=== PATIENT | female | born 2005 | race Caucasian/White ===

== ENCOUNTER 2025-06-21 20:28 | Emergency (ER) | payer MEDICAID ==
--- NOTE | 2025-06-21 20:34 | ERPHSYRPT ---
- History of Present Illness Time Seen by Provider: 06/21/25 20:31 Source: patient, family Exam Limitations: no limitations Physician History: This is a 19-year-old white female patient who arrives per private vehicle accompanied by her mother who has had a couple of months complaint of intermittent pelvic pain. They could be on the right, it could be on the left, it can be on both sides. She currently has not had any vaginal discharge. Within the last year she stated that she thinks she had a miscarriage. Within the last couple months she thought she had a yeast infection and therefore she treated herself with [id number] vaginal tablets. Her last menstrual period is 05/13/2025. She states over the last several months her menstrual periods have been varying in terms of timing. She appears to be in no discomfort at this time. Timing/Duration: intermittent, other (Chronic ) Activites at Onset: none Quality: cramping (Intermittent) Onset Location: pelvic pain Severity of Pain-Max: mild Severity of Pain-Current: none Sexual intercourse history: non-contributory Modifying Factors: Improves With: nothing Associated Symptoms: abdominal pain (Mild intermittent pelvic cramping), No nausea, No vomiting, No dysuria, No polyuria, No urinary frequency, No loss of bladder control, No lower back pain, No vaginal discharge Allergies/Adverse Reactions: No Known Drug Allergies Allergy (Verified 06/21/25 20:40) Home Medications: No Reportable Medications [No Reported Medications] 06/21/25 [History] Travel Risk - International Travel Have you traveled outside of the country in past 3 weeks: No - Emerging Infectious Disease Are you exhibiting symptoms associated with any current EIDs: No - Review of Systems Constitutional: No Symptoms Eyes: No Symptoms Ears, Nose, & Throat: No Symptoms Respiratory: No Symptoms Cardiac: No Symptoms Abdominal/Gastrointestinal: Abdominal Pain (Intermittent pelvic cramping) Genitourinary Symptoms: No Symptoms, No Dysuria, No Vaginal Bleeding, No Vaginal Discharge, No Vaginal Itching Musculoskeletal: No Symptoms Skin: No Symptoms Neurological: No Symptoms Psychological: No Symptoms Endocrine: No Symptoms Hematologic/Lymphatic: No Symptoms Immunological/Allergic: No Symptoms All Other Systems: Reviewed and Negative - Past Medical History Pertinent Past Medical History: No - Nursing Vital Signs Nursing Vital Signs: Initial Vital Signs Temperature 98.3 F 06/21/25 20:41 Pulse Rate 90 06/21/25 20:41 Respiratory Rate 18 06/21/25 20:41 Blood Pressure 146/89 06/21/25 20:41 O2 Sat by Pulse Oximetry 98 06/21/25 20:41 Pain Scale Pain Intensity 1 - Physical Exam General Appearance: no apparent distress, alert, anxiety, thin Eye Exam: PERRL/EOMI, eyes nml inspection Ears, Nose, Throat Exam: normal ENT inspection, moist mucous membranes Neck Exam: normal inspection, non-tender, supple, full range of motion Respiratory Exam: airway intact, No chest tenderness, No respiratory distress Gastrointestinal/Abdomen Exam: soft, normal bowel sounds, tenderness (Mild to palpation), guarding (Mild to palpation suprapubic region), No rebound Pelvic Exam: not done Rectal Exam: not done Back Exam: normal inspection, normal range of motion, No CVA tenderness, No vertebral tenderness Extremity Exam: normal inspection, normal range of motion, pelvis stable Neurologic Exam: alert, oriented x 3, cooperative, solution analyst II-XII nml as tested, nml cerebellar function, nml station & gait, sensation nml Skin Exam: normal color, warm, dry Lymphatic Exam: No adenopathy SpO2 Interpretation: normal O2 Delivery: Room Air - Course Nursing assessment & vital signs reviewed: Yes Ordered Tests: Active Orders 24 hr Category Date Time Status OB <14 WKS 1ST GESTATION [US] Stat Exams 06/21/25 22:13 Taken AMYLASE Stat Lab 06/21/25 21:30 Completed CBC W DIFF Stat Lab 06/21/25 21:30 Completed CMP Stat Lab 06/21/25 21:30 Completed HCG QUALITATIVE, SERUM Stat Lab 06/21/25 21:30 Completed HCG, Quantitative (Inhouse) Stat Lab 06/21/25 22:17 Completed LIPASE Stat Lab 06/21/25 21:30 Completed UA W/RFX UR CULTURE Stat Lab 06/21/25 21:17 Completed Medication Summary Discontinued Medications Generic Name Dose Route Start Last Admin Trade Name Freq PRN Reason Stop Dose Admin Potassium Chloride 20 meq 06/21/25 22:14 06/21/25 22:16 Potassium Chloride Tab 10 Meq Tab PO 06/21/25 22:15 20 meq STAT ONE Administration Potassium Chloride Confirm 06/21/25 22:16 Potassium Chloride Tab 10 Meq Tab Administered 06/21/25 22:17 Dose 20 meq .ROUTE .STK-MED ONE Lab/Rad Data: Laboratory Result Diagrams 06/21/25 21:30 06/21/25 21:30 Laboratory Results 06/21/25 06/21/25 06/21/25 Range/Units 22:17 21:30 21:30 WBC (3.98-10.04) x10^3/uL RBC (3.93-5.22) x10^6/uL Hgb (11.2-15.7) g/dL Hct (34.1-44.9) % MCV (79.4-94.8) fL MCH (25.6-32.2) pg MCHC (32.2-35.5) g/dL RDW (11.7-14.4) % Plt Count (182-369) x10^3/uL MPV (9.4-12.3) fL Gran % (34.0-71.1) % Immature Gran % (Auto) (0.001-0.429) % Nucleat RBC Rel Count (0.00-0.2) % Eos # (Auto) (0.04-0.36) x10^3/uL Immature Gran # (Auto) (0.001-0.031) x10^3u/L Absolute Lymphs (auto) (1.18-3.74) x10^3/uL Absolute Monos (auto) (0.24-0.86) x10^3/uL Absolute Nucleated RBC (0.00-0.012) x10^3u/L Lymphocytes % (19.3-51.7) % Monocytes % (4.7-12.5) % Eosinophils % (0.7-5.8) % Basophils % (0.1-1.2) % Absolute Granulocytes (1.56-6.13) x10^3/uL Basophils # (0.01-0.08) x10^3/uL Sodium 137 (135-145) mmol/L Potassium 3.1 L (3.5-5.1) mmol/L Chloride 103 (98-107) mmol/L Carbon Dioxide 22 (22-30) mmol/L Anion Gap 14.6 (5-15) MEQ/L BUN 4 L (7-17) mg/dL Creatinine 0.80 (0.52-1.04) mg/dL Estimated GFR 107.4 ML/MIN Glucose 84 (74-106) mg/dL Calcium 9.1 (8.4-10.2) mg/dL Total Bilirubin 0.80 (0.2-1.3) mg/dL AST 26 (14-36) U/L ALT 13 (0-35) U/L Alkaline Phosphatase 67 (38-126) U/L Serum Total Protein 8.1 (6.3-8.2) g/dL Albumin 4.9 (3.5-5.0) g/dL Amylase 104 (30-110) U/L Lipase 178 (23-300) U/L Serum HCG, Qual POSITIVE (NEGATIVE) Beta HCG, Quant 2629.8 mIU/ml Urine Color (Yellow) Urine Appearance (Clear) Urine pH (4.6-8.0) Ur Specific [place] (1.005-1.030) Urine Protein (Negative) Urine Glucose (UA) (Negative) mg/dL Urine Ketones (Negative) Urine Blood (Negative) Urine Nitrite (Negative) Urine Bilirubin (Negative) Urine Urobilinogen (0.2) mg/dL Ur Leukocyte Esterase (Negative) U Hyaline Cast (Auto) (0-2) /LPF Urine Microscopic RBC (0-5) /HPF Urine Microscopic WBC (0-5) /HPF Ur Epithelial Cells (None Seen) /HPF Urine Bacteria (None Seen) /HPF Urine Culture Reflexed (NO) 06/21/25 06/21/25 Range/Units 21:30 21:17 WBC 11.7 H (3.98-10.04) x10^3/uL RBC 3.56 L (3.93-5.22) x10^6/uL Hgb 12.1 (11.2-15.7) g/dL Hct 36.8 (34.1-44.9) % MCV 103.4 H (79.4-94.8) fL MCH 34.0 H (25.6-32.2) pg MCHC 32.9 (32.2-35.5) g/dL RDW 12.5 (11.7-14.4) % Plt Count 287 (182-369) x10^3/uL MPV 8.7 L (9.4-12.3) fL Gran % 76.7 H (34.0-71.1) % Immature Gran % (Auto) 0.3 (0.001-0.429) % Nucleat RBC Rel Count 0.0 (0.00-0.2) % Eos # (Auto) 0.11 (0.04-0.36) x10^3/uL Immature Gran # (Auto) 0.04 H (0.001-0.031) x10^3u/L Absolute Lymphs (auto) 1.73 (1.18-3.74) x10^3/uL Absolute Monos (auto) 0.82 (0.24-0.86) x10^3/uL Absolute Nucleated RBC 0.00 (0.00-0.012) x10^3u/L Lymphocytes % 14.8 L (19.3-51.7) % Monocytes % 7.0 (4.7-12.5) % Eosinophils % 0.9 (0.7-5.8) % Basophils % 0.3 (0.1-1.2) % Absolute Granulocytes 8.95 H (1.56-6.13) x10^3/uL Basophils # 0.03 (0.01-0.08) x10^3/uL Sodium (135-145) mmol/L Potassium (3.5-5.1) mmol/L Chloride (98-107) mmol/L Carbon Dioxide (22-30) mmol/L Anion Gap (5-15) MEQ/L BUN (7-17) mg/dL Creatinine (0.52-1.04) mg/dL Estimated GFR ML/MIN Glucose (74-106) mg/dL Calcium (8.4-10.2) mg/dL Total Bilirubin (0.2-1.3) mg/dL AST (14-36) U/L ALT (0-35) U/L Alkaline Phosphatase (38-126) U/L Serum Total Protein (6.3-8.2) g/dL Albumin (3.5-5.0) g/dL Amylase (30-110) U/L Lipase (23-300) U/L Serum HCG, Qual (NEGATIVE) Beta HCG, Quant mIU/ml Urine Color Yellow (Yellow) Urine Appearance Clear (Clear) Urine pH 6.5 (4.6-8.0) Ur Specific [place] <=1.005 (1.005-1.030) Urine Protein Negative (Negative) Urine Glucose (UA) Negative (Negative) mg/dL Urine Ketones Negative (Negative) Urine Blood Negative (Negative) Urine Nitrite Negative (Negative) Urine Bilirubin Negative (Negative) Urine Urobilinogen 0.2 (0.2) mg/dL Ur Leukocyte Esterase Negative (Negative) U Hyaline Cast (Auto) NONE SEEN (0-2) /LPF Urine Microscopic RBC 0-2 (0-5) /HPF Urine Microscopic WBC 0-2 (0-5) /HPF Ur Epithelial Cells None Seen (None Seen) /HPF Urine Bacteria None Seen (None Seen) /HPF Urine Culture Reflexed NO (NO) - Progress Progress: re-examined Air Movement: good Progress Note: 06/21/25 21:23 My medical decision making and the assignment of at least moderate complexity of this patient's medical issue today is based on review of the patient's past medical history, reviewed the patient's medication list, reviewed the patient drug allergy list, history present illness and physical findings on examination. The workup in this patient includes CBC, CMP, amylase, lipase, urinalysis, serum test, CT scan of the abdomen pelvis without contrast. Differential diagnosis includes but is not limited to hormonal irregularities, , urinary tract infection, yeast infection, intra-abdominal/pelvic abnormalities 06/21/25 23:29 I interpreted patient's laboratory data results. Based on the laboratory data results, there are no acute, emergent medical issues. Patient is and the quantitative hCG is within the expected range range for someone whose last menstrual period was 5 to 6 weeks ago. The OB ultrasound less than 14 weeks was performed by the drill operator/technologist. She provided me with the preliminary report which states no evidence of ectopic . There is cul-de-sac fluid present. There is evidence of gestational sac and yolk sac. Blood Culture(s) Obtained: No Antibiotics given: No Counseled pt/family regarding: lab results, diagnosis, rad results Medical Desision Making - Independent Historian Additional History obtained from: Mother - Diagnostic Testing Diagnostic test were ordered, analyzed, and reviewed by me: Yes Radiological Interpretation: Other (Discussed with drill operator who provided preliminary report) - Risk of complications Low Risk: Low risk of morbidity from additional dx testing or treatment - Departure Departure Disposition: Home Clinical Impression: Condition: Stable Critical Care Time: No Referrals: DOCTOR,NO FAMILY [Primary Care Provider, UNKNOWN] - Follow up/PCP as directed Additional Instructions: Avoid ibuprofen. Use Tylenol for any pain control. Call your primary care provider and/or bell maker on 06/23/2025, to make arrangements for follow-up appointment to be seen in the next 7 days
[2025-06-21 20:48] VITALS: TEMP 98.3
[2025-06-21 21:31] LABS: Glucose, Urine Negative (Negative); Protein,Urine Dip Negative (Negative); RBC 0-2 /HPF (0-5); WBC 0-2 /HPF (0-5)
[2025-06-21 21:32] LABS: BASOPHIL % 0.3 % (0.1-1.2); Basophil (Absolute #) 0.03 x10^3/uL (0.01-0.08); Eosinophil (Absolute #) 0.11 x10^3/uL (0.04-0.36); Hematocrit 36.8 % (34.1-44.9); Hemoglobin 12.1 g/dL (11.2-15.7); IMMATURE GRAN # 0.04 x10^3u/L (0.001-0.031); IMMATURE GRAN % 0.3 % (0.001-0.429); Lymphocyte (Absolute #) 1.73 x10^3/uL (1.18-3.74); Mean Corpuscular Hemoglobin 34.0 pg (25.6-32.2); Mean Corpuscular Hgb Concent. 32.9 g/dL (32.2-35.5); Monocyte (Absolute #) 0.82 x10^3/uL (0.24-0.86); NUCLEATED RBC # 0.00 x10^3u/L (0.00-0.012); NUCLEATED RBC % 0.0 % (0.00-0.2); Platelet Count 287 x10^3/uL (182-369); Red Blood Count 3.56 x10^6/uL (3.93-5.22); White Blood Count 11.7 x10^3/uL (3.98-10.04)
[2025-06-21 21:45] LABS: Calcium 9.1 mg/dL (8.4-10.2); Carbon Dioxide 22.0 mmol/L (22-30); Creatinine 1 0.8 mg/dL (0.52-1.04); EST GLOMERULAR FILTRATION RATE 107.4 ML/MIN; Glucose 84.0 mg/dL (74-106); Potassium 3.1 mmol/L (3.5-5.1); SGOT/AST 26.0 U/L (14-36); SGPT/ALT 13.0 U/L (0-35); Total Protein 8.1 g/dL (6.3-8.2)
[2025-06-21 21:53] LABS: HCG SERUM TEST POSITIVE (NEGATIVE)
[2025-06-21] MEDS ORDERED: Klor Con ONE (22:16)
[2025-06-21] MEDS: Klor Con PO ONE (22:16)
[2025-06-21 23:08] VITALS: BP 115/73; PULSE 85; RESP 16; O2SAT 99
--- NOTE | 2025-06-22 08:01 | XRAY ---
Indication: Right pelvic pain. Positive . History ectopic/miscarriage. Two-dimensional transvaginal early OB ultrasound performed. Comparison: None Uterus anteverted with single intrauterine gestational sac. Mean sac diameter is 0.46 cm corresponding to 5 weeks 0 days. No pole/ heart tones presumed early . No abnormal endometrial fluid collection. Left and right ovaries are sonographically unremarkable. No suspicious adnexal mass. Small nonspecific cul-de-sac free fluid. Impression: Single intrauterine gestational sac measuring 5 weeks 0 days. No pole/heart tones presumed early . Correlate with serial beta HCG and follow up sonogram regarding viability. Comment: Preliminary report was given.
== END 2025-06-21 23:45 | disposition home or self-care (01) ==
LOC: ED 20:28
DX: Z33.1 Pregnant state, incidental (principal); R10.20 Pelvic and perineal pain unspecified side